=== PATIENT | male | born 1985 | race Two or more races ===

== ENCOUNTER 2022-12-09 19:48 | Emergency (ER) | payer OTHER ==
[~2022-12-09] VITALS: Ht 172.7 cm; Wt 87.1 kg
[2022-12-09] MEDS ORDERED: METOPROLOL SUCC50 MG PO (20:01)
[2022-12-09] MEDS ORDERED: METOPROLOL SUC100 MG PO (20:01)
[2022-12-09] MEDS ORDERED: SYNTHROID137 MCG PO (20:01)
[2022-12-09] MEDS ORDERED: IRBESARTAN300 MG PO (20:01)
== END 2022-12-09 21:04 | disposition home or self-care (01) ==
LOC: ER 19:48
DX: J06.9 Acute upper respiratory infection, unspecified (principal)

== ENCOUNTER 2023-03-01 09:53 | Emergency (ER) | payer OTHER ==
[~2023-03-01] VITALS: Ht 172.7 cm; Wt 86.2 kg
[~2023-03-01 09:53] MED LIST: IRBESARTAN300 MG PO; METOPROLOL SUC100 MG PO; METOPROLOL SUCC50 MG PO; SYNTHROID137 MCG PO
[2023-03-01] MEDS ORDERED: FENOFIBRATE50 MG PO (10:16)
== END 2023-03-01 14:34 | disposition home or self-care (01) ==
LOC: ER 09:53
PROVIDERS: General Practice
DX: N34.2 Other urethritis (principal); I10 Essential (primary) hypertension; E03.9 Hypothyroidism, unspecified